=== PATIENT | male | born 1945 | race Caucasian/White ===

== ENCOUNTER 2018-04-05 19:39 | Emergency (ER) | payer MEDICARE, SELFPAY ==
[2018-04-05 19:45] VITALS: BP 122/81; PULSE 62; RESP 12; TEMP 36.3; O2SAT 100; BMI 24.7
[2018-04-05 19:50] VITALS: PULSE 62
--- NOTE | 2018-04-05 19:54 | ED.UPPEXIN ---
HPI - Extremity Injury (Upper) <MARLON Blake - Last Filed: 04/05/18 19:54> General Chief Complaint: Extremity Injury, Upper Stated Complaint: WOUND TO INDEX FINGER OF L HAND FROM [employer] Time Seen by Provider: 04/05/18 19:53 Related Data Previous Rx's Medication Instructions Recorded cephalexin [Keflex] 500 mg PO QID 7 Days #28 cap 04/05/18 Allergies Allergy/AdvReac Type Severity Reaction Status Date / Time No Known Drug Allergies Allergy Verified 04/05/18 20:10 <Ru Farris DO - Last Filed: 04/05/18 21:04> General Source: patient and family Mode of arrival: ambulatory Limitations: no limitations History of Present Illness HPI narrative: Healthy 72-year-old male presents to the emergency department with an injury to the tip of his left index finger while using a shirt trimmer at home. He suffered a laceration to the tip of his finger and denies other injury. His tetanus will need to be updated. He denies numbness, tingling or weakness. It bled significantly and he did wash it with peroxide immediately. MD complaint: injury to: left Onset (ago): hour(s) Other Extremity Injury: Left: fingers Other injuries: none Handedness: right Place: home Severity: mild Relieving factors: none Exacerbating factors: none Context: laceration Associated symptoms: denies other symptoms <Ru Farris DO - Last Filed: 04/05/18 21:04> Review of Systems All systems reviewed & are unremarkable except as noted in HPI and below Constitutional Denies chills, Denies fever(s), Denies lethargy and Denies weakness Eyes Denies change in vision, Denies eye discharge, Denies irritation and Denies loss of vision ENT Ears, Nose, Mouth, and Throat: Denies change in voice, Denies neck pain and Denies sore throat Cardiovascular Denies chest pain, Denies irregular heart rhythm, Denies lightheadedness, Denies palpitations, Denies dyspnea, Denies dyspnea on exertion and Denies orthopnea Respiratory Denies cough, Denies dyspnea, Denies dyspnea on exertion and Denies wheezing Gastrointestinal Gastrointestinal: Denies abdominal pain, Denies change in bowel habits, Denies diarrhea, Denies nausea and Denies vomiting Genitourinary Denies hematuria, Denies flank pain, Denies urinary incontinence and Denies urinary urgency Musculoskeletal Denies neck pain Integumentary/Breasts Denies pruritus, Denies erythema, Denies rash and Reports wounds Neurologic Denies confusion, Denies loss of vision and Denies weakness Psychiatric Denies anxiety, Denies confusion, Denies depression, Denies homicidal ideation and Denies suicidal ideation Endocrine Denies palpitations Hematologic/Lymphatic Denies easy bruising Allergic/Immunologic Denies wheezing Exam <MARLON Blake - Last Filed: 04/05/18 19:54> Initial Vital Signs Initial Vital Signs: Vital Signs Temperature 97.4 F L 04/05/18 19:45 Pulse Rate 62 04/05/18 19:45 Respiratory Rate 12 04/05/18 19:45 Blood Pressure 122/81 H 04/05/18 19:45 Pulse Oximetry 100 04/05/18 19:45 <Ru Farris DO - Last Filed: 04/05/18 21:04> Narrative Exam Narrative: Pleasant 72-year-old male in mild distress, apply Initial Vital Signs Initial Vital Signs: Vital Signs Temperature 97.4 F L 04/05/18 19:45 Pulse Rate 62 04/05/18 19:45 Respiratory Rate 12 04/05/18 19:45 Blood Pressure 122/81 H 04/05/18 19:45 Pulse Oximetry 100 04/05/18 19:45 Const General: cooperative and well developed Nutritional Appearance: well nourished Orientation: alert, awake, oriented x3 and not confused HENRI Head: normocephalic and atraumatic Ears: external ears normal and TM's normal bilaterally Nose: external nose normal and No nasal discharge Face and sinus: sinuses nontender, face symmetric, no sinus tenderness and No dry mucous membranes Mouth: oral mucosae normal and moist mucous membranes Teeth and gingiva: dentition normal Throat: tonsils normal and uvula midline Resp Effort & Inspection: normal respiratory effort, able to speak in complete sentences, no respiratory distress and no use of accessory muscles Auscultation: clear to auscultation bilaterally, no rales, no rhonchi and no wheezes GI Inspection: non-distended Palpation: soft, no hepatosplenomegaly, No guarding, No pulsatile mass and No tender Auscultation: normal bowel sounds Skin Trauma: laceration (left index) Neuro General: alert, awake and oriented x3 Extrem Left upper extremity: hand (irregular stellate 1.5cm laceration to tip of finger. Active bleeding. No bone visualized. No numbness, tingling, or weakness. ) <Ru Farris DO - Last Filed: 04/05/18 21:04> Laceration Repair Laceration 1: Site: hand (left index finger) Side (If applicable): left Size (cm): 1.5 Description: stellate Depth: simple, single layer Local Anesthetic: other anesthetic (digital block with lido 1 /bicarb, 3mL achieved adequate anesthesia) Pre-repair: wound explored, irrigated extensively and deep structures intact Skin layer closed with: nylon Size (cm): 5-0 Number of sutures: 4 Technique: simple, interrupted Course <MARLON Blake - Last Filed: 04/05/18 19:54> Orders Ordered: ED Orders 04/05/18 19:59 XR finger LT min 2V Stat Discontinued Medications Cefazolin Sodium (Keflex) 1 bottle MISC SEEINSTR ONE Stop: 04/05/18 20:00 Last Admin: 04/05/18 20:14 Dose: 1 bottle Diphtheria/Tetanus/Acell Pertussis (Adacel) 0.5 ml IM .ONCE ONE Stop: 04/05/18 20:17 Last Admin: 04/05/18 20:19 Dose: 0.5 ml Vital Signs - 8 hr 04/05/18 19:45 04/05/18 19:50 04/05/18 19:56 Temperature 97.4 F L Pulse Rate 62 63 Pulse Rate [Bilateral Radial] 62 Respiratory Rate 12 Blood Pressure 122/81 H Blood Pressure [Right Arm] 122/81 H Pulse Oximetry 100 100 <Ru Farris DO - Last Filed: 04/05/18 21:04> Orders Ordered: ED Orders 04/05/18 19:59 XR finger LT min 2V Stat Discontinued Medications Cefazolin Sodium (Keflex) 1 bottle MISC SEEINSTR ONE Stop: 04/05/18 20:00 Last Admin: 04/05/18 20:14 Dose: 1 bottle Diphtheria/Tetanus/Acell Pertussis (Adacel) 0.5 ml IM .ONCE ONE Stop: 04/05/18 20:17 Last Admin: 04/05/18 20:19 Dose: 0.5 ml Vital Signs - 8 hr 04/05/18 19:45 04/05/18 19:50 04/05/18 19:56 Temperature 97.4 F L Pulse Rate 62 63 Pulse Rate [Bilateral Radial] 62 Respiratory Rate 12 Blood Pressure 122/81 H Blood Pressure [Right Arm] 122/81 H Pulse Oximetry 100 100 <Ru Farris DO - Last Filed: 04/05/18 21:04> Imaging Data Finger Xray: My impression: NAP Radiologist's impression: PROCEDURE: XR FINGER LT MIN 2V INDICATIONS: fingertip injury, from shirt trimmer TECHNIQUE: AP hand, 2 views of the left finger(s) acquired. COMPARISON: None. FINDINGS: Bones: No fractures or dislocations. No suspicious bony lesions. Soft tissues: Index finger soft tissue swelling IMPRESSION: No fracture Dictated by: Dimas Painting M.D. on 04/05/2018 at 20:57 Approved by: Dimas Painting M.D. on 04/05/2018 at 20:59 Discharge Plan Departure Patient Disposition: Home, Self-Care Clinical Impression: Laceration of index finger Discharge Date/Time: 04/05/18 20:59 Instructions: DI for Laceration Repair Activity Restrictions/Additional Instructions: *You have been diagnosed with [ Left index laceration ] *What to do: *Take medications as directed *Follow up with your primary care provider in 2-3 days *Return to ER if you should have any new, worsening or concerning symptoms Please keep the wound clean and dry to the best of your ability. Please monitor for signs of infection such as redness to the skin or increasing pain. Have the sutures removed by your doctor in about 10 days. If you are unable to get into your doctor, we would be happy to remove the sutures in that same timeframe. Prescriptions: New cephalexin [Keflex] 500 mg capsule 500 mg PO QID 7 Days Qty: 28 RF: 0 Referrals: Lei De La Torre MD [Physician] - Vivienne Genao DO [Physician] -
--- NOTE | 2018-04-05 19:55 | ED.UPPEXIN ---
HPI - Extremity Injury (Upper) General Chief Complaint: Extremity Injury, Upper Stated Complaint: WOUND TO INDEX FINGER OF L HAND FROM [employer] Time Seen by Provider: 04/05/18 19:50 Source: patient and family Mode of arrival: ambulatory Limitations: no limitations History of Present Illness HPI narrative: Otherwise healthy 72-year-old male presents with chief complaint of an injury to the tip of his left index finger while using a ladies' hat trimmer at home. Patient has full range of motion and denies numbness or tingling. Patient will need tetanus updated. complaint: injury to: left Onset (ago): hour(s) Other Extremity Injury: Left: fingers Other injuries: none Handedness: right Place: outdoors Severity: mild Relieving factors: none Exacerbating factors: none Context: laceration Associated symptoms: denies other symptoms Related Data Previous Rx's Medication Instructions Recorded cephalexin [Keflex] 500 mg PO QID 7 Days #28 cap 04/05/18 Allergies Allergy/AdvReac Type Severity Reaction Status Date / Time No Known Drug Allergies Allergy Verified 04/05/18 20:10 Review of Systems Review of Systems All systems reviewed & are unremarkable except as noted in HPI and below Constitutional Denies chills, Denies fever(s), Denies lethargy and Denies weakness Eyes Denies change in vision, Denies eye discharge, Denies irritation and Denies loss of vision ENT Ears, Nose, Mouth, and Throat: Denies change in voice, Denies neck pain and Denies sore throat Cardiovascular Denies chest pain, Denies irregular heart rhythm, Denies lightheadedness, Denies palpitations, Denies dyspnea, Denies dyspnea on exertion and Denies orthopnea Respiratory Denies cough, Denies dyspnea, Denies dyspnea on exertion and Denies wheezing Gastrointestinal Gastrointestinal: Denies abdominal pain, Denies change in bowel habits, Denies diarrhea, Denies nausea and Denies vomiting Genitourinary Denies hematuria, Denies flank pain, Denies urinary incontinence and Denies urinary urgency Musculoskeletal Reports limited range of motion and Denies neck pain Integumentary/Breasts Denies pruritus, Denies erythema, Denies rash and Reports wounds Neurologic Denies confusion, Denies loss of vision and Denies weakness Psychiatric Denies anxiety, Denies confusion, Denies depression, Denies homicidal ideation and Denies suicidal ideation Endocrine Denies palpitations Hematologic/Lymphatic Denies easy bruising Allergic/Immunologic Denies wheezing [facility] Social History Smoking Status: Former smoker Exam Initial Vital Signs Initial Vital Signs: Vital Signs Temperature 97.4 F L 04/05/18 19:45 Pulse Rate 62 04/05/18 19:45 Respiratory Rate 12 04/05/18 19:45 Blood Pressure 122/81 H 04/05/18 19:45 Pulse Oximetry 100 04/05/18 19:45 Const General: cooperative and well developed Nutritional Appearance: well nourished Orientation: alert, awake, oriented x3 and not confused HENMO Head: normocephalic and atraumatic Ears: external ears normal and TM's normal bilaterally Nose: external nose normal and No nasal discharge Face and sinus: sinuses nontender, face symmetric, no sinus tenderness and No dry mucous membranes Mouth: oral mucosae normal and moist mucous membranes Teeth and gingiva: dentition normal Throat: tonsils normal and uvula midline Eyes General: appearance normal, both eyes and all related structures Eyelids: eyelids normal Conjunctivae: conjunctivae normal Sclera: sclerae normal Pupils: PERRL EOM: EOM intact bilaterally Resp Effort & Inspection: normal respiratory effort, able to speak in complete sentences, no respiratory distress and no use of accessory muscles Auscultation: clear to auscultation bilaterally, no rales, no rhonchi and no wheezes GI Inspection: non-distended Palpation: soft, no hepatosplenomegaly, No guarding, No pulsatile mass and No tender Auscultation: normal bowel sounds Back/Spine/Pelvis Back: No CVA tenderness Cervical Spine: cervical ROM normal and No pain with cervical ROM Thoracic/Lumbar Spine: thoracic and lumbar spine normal to inspection Skin Trauma: laceration Neuro General: alert, oriented x3, gait normal and no focal motor deficits Speech: speech normal Extrem Left upper extremity: hand ( Left index finger has a stellate laceration with active bleeding. No foreign bodies or bone visible.) Procedures Laceration Repair Laceration 1: Side (If applicable): left Size (cm): 2 Description: stellate Depth: simple, single layer Local Anesthetic: lidocaine 1%, with bicarb and other anesthetic ( Administered as a digital block. Appropriate anesthesia was achieved) Amount of anesthesia used (mL): 3 Pre-repair: wound explored and irrigated extensively Number of sutures: 4 Course Orders Ordered: ED Orders 04/05/18 19:59 XR finger LT min 2V Stat Discontinued Medications Cefazolin Sodium (Keflex) 1 bottle MISC SEEINSTR ONE Stop: 04/05/18 20:00 Last Admin: 04/05/18 20:14 Dose: 1 bottle Diphtheria/Tetanus/Acell Pertussis (Adacel) 0.5 ml IM .ONCE ONE Stop: 04/05/18 20:17 Last Admin: 04/05/18 20:19 Dose: 0.5 ml Vital Signs - 8 hr 04/05/18 20:56 Pulse Rate 70 Respiratory Rate 12 Blood Pressure [Right Arm] 120/70 Pulse Oximetry 99 Discharge Plan Departure Patient Disposition: Home, Self-Care Clinical Impression: Laceration of index finger Discharge Date/Time: 04/05/18 20:59 Interventions: ED Discharge Assessment Last Done: 04/05/18 20:57 Apply/change dressing Last Done: 04/05/18 20:58 Instructions: DI for Laceration Repair Activity Restrictions/Additional Instructions: *You have been diagnosed with [ Left index laceration ] *What to do: *Take medications as directed *Follow up with your primary care provider in 2-3 days *Return to ER if you should have any new, worsening or concerning symptoms Please keep the wound clean and dry to the best of your ability. Please monitor for signs of infection such as redness to the skin or increasing pain. Have the sutures removed by your doctor in about 10 days. If you are unable to get into your doctor, we would be happy to remove the sutures in that same timeframe. Prescriptions: New cephalexin [Keflex] 500 mg capsule 500 mg PO QID 7 Days Qty: 28 RF: 0 Referrals: Lei De La Torre MD [Physician] - Vivienne Genao DO [Physician] -
[2018-04-05 19:56] VITALS: BP 122/81; PULSE 63; O2SAT 100
--- NOTE | 2018-04-05 19:59 | DI.RAD.S_ITS ---
PROCEDURE: XR FINGER LT MIN 2V INDICATIONS: fingertip injury, from blueprint trimmer TECHNIQUE: AP hand, 2 views of the left finger(s) acquired. COMPARISON: None. FINDINGS: Bones: No fractures or dislocations. No suspicious bony lesions. Soft tissues: Index finger soft tissue swelling IMPRESSION: No fracture Dictated by: Dimas Painting M.D. on 04/05/2018 at 20:57 Approved by: Dimas Painting M.D. on 04/05/2018 at 20:59
[2018-04-05] MEDS: cephALEXin 250 MG PREPACK 1 BOTTLE MISC (20:14)
[2018-04-05] MEDS: TET,DIPH,PERTUSS(ACELL),VAC/PF 0.5 ML SYRINGE IM (20:19)
[2018-04-05 20:56] VITALS: BP 120/70; PULSE 70; RESP 12; O2SAT 99
== END 2018-04-05 20:59 | disposition home or self-care (01) ==
PROVIDERS: Emergency Provider Emergency Medicine
DX: S61.211A Laceration without foreign body of left index finger without damage to nail, initial encounter (principal); W29.3XXA Contact with powered garden and outdoor hand tools and machinery, initial encounter
CPT/HCPCS: 12001; 73140; 90471; 99282; 99283; 90715